=== PATIENT | female | born 1955 | race Caucasian/White ===

== ENCOUNTER 2017-03-06 21:46 | Inpatient (IN) | payer OTHER ==
--- NOTE | ~2017-03-06 | HP ---
Unit #: [id number] #: [id number] Patient: HALEIGH PETERS [id number] [address] [address] [id number] I MR#: [id number] NAME: HALEIGH PETERS ROOM: 575 Age: 61 Sex: F Admission Date: 03/06/2017 : 1955 Attending Physician: Kaila Pike M.D. Primary Care Physician: No Primary Care Physician HISTORY AND PHYSICAL INDICATION Atrial fibrillation and palpitations. HISTORY OF PRESENT ILLNESS 61-year-old female with a past medical history of smoking, hypertension, hyperlipidemia who presents to the ER with three hour history of sudden onset of palpitations and chest discomfort. The patient states once this has started it has not stopped and is making her feel uncomfortable. She also mentioned some associated shortness of breath. She mentions to a sudden onset, no specific exciting factor. She denies stroke in past. She denies any bleeding history in past. She denies any prior cardiac workup. She takes Lipitor 20 mg. We follow blood pressure and amlodipine/benazepril combination for her hypertension. She states being (1) to all of her medications. 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 She denies orthopnea, PND, pedal edema and syncope. In the ER she was found to be in atrial fibrillation with a ventricular rate around 160 BPM. ECG demonstrates AFib with nonspecific ST segment changes. PAST MEDICAL HISTORY 1. Hypertension. 2. Hyperlipidemia. 3. Smoking. 4. Osteomyelitis of the right first great toe four years ago. PAST SURGICAL HISTORY Denies any history of cardiac surgeries, appendectomy or cholecystectomy. OUTPATIENT MEDICATIONS 1. Amlodipine/benazepril combination 5/40 mg p.o. once daily. 2. Lipitor 20 mg p.o. daily. ALLERGIES No known drug allergies. REVIEW OF SYSTEMS All 14 point review of systems are negative except as per HPI. Unit #: [id number] #: [id number] Patient: HALEIGH PETERS SOCIAL HISTORY She is . Currently works in a warehouse. Continues to smoke. FAMILY HISTORY Premature coronary artery disease with father having a heart attack at age around 50. PHYSICAL EXAMINATION VITAL SIGNS: Patient's blood pressure currently is 108/68 with a ventricular rate of 158 BPM, respiratory rate around 18, afebrile. GENERAL: In mild distress. NECK: No thyromegaly noted. No JVD. HEENT: PERRLA. CHEST: No vesicular breath sounds heard bilaterally. HEART: S1 and S2 is heard, irregular, tachycardic. No murmurs appreciated. ABDOMEN: Soft and nontender. Bowel sounds are present. SKIN: Intact. No ulcers. PSYCH: Mood and affect normal. NEUROLOGIC: Speech and gait normal. MUSCULOSKELETAL: No scoliosis noted. EXTREMITIES: Distal pulses present. Warm. DIAGNOSTIC STUDIES LABORATORY STUDIES: Labs currently pending. ASSESSMENT AND PLAN 1. Atrial fibrillation. 2. Hypertension. 3. Hyperlipidemia. PLAN Patient currently in AFib with RVR. Given metoprolol at 5 mg IV x1. Patient is already in ER. Patient is already on amiodarone bolus. Would start patient on Cardizem 5 mg an hour drip and also with p.o. Cardizem 30 mg p.o. q.6. I have noted, myself, that given IV metoprolol currently in the ER, the patient's heart rate is being controlled currently with a heart rate less than 120 BPM. Would continue with above mentioned plan. Plan anticoagulation as patient's CHADS-VASc score is at least 2. Will start Eliquis 5 mg p.o. b.i.d. If patient continues to remain in atrial fibrillation, will consider offering her cardioversion in the morning for maintenance of rhythm. Given extensive history of premature coronary artery disease and ST segment changes with RVR and extensive smoking, we would go ahead and proceed with a Lexiscan stress test also in the morning. Hold patient's benazepril amlodipine combination at present. Will use patient's blood pressure room for up titration of AV rubina blocking agents. Continue a statin. Further management plan as inpatient. Dictated by Unit #: [id number] #: [id number] Patient: HALEIGH PETERS M.D. PR/ts TD: 03/07/2017 05:07 JOB #: [id number] HISTORY AND PHYSICAL Page 1 of 1 X KAILA PIKE MD X HISTORY AND PHYSICAL
--- NOTE | ~2017-03-06 | DS ---
Unit #: [id number] #: [id number] Patient: HALEIGH PETERS [id number] [facility]. [place], [place] [address] [id number] I MR#: [id number] NAME: HALEIGH PETERS ROOM: 575 Age: 61 Sex: F Admission Date: 03/06/2017 : 1955 Discharge Date: 03/08/2017 Attending Physician: Maurilio Pike M.D. Primary Care Physician: No Primary Care Physician DISCHARGE SUMMARY HISTORY This 61-year-old white female patient has history of hypertension, hyperlipidemia and history of smoking. She was brought to the ER with palpitations, which started about 3 hours before. She also complained of mild chest pains. She was found to be in atrial fibrillation with rapid ventricular response. She was eventually treated with a Cardizem drip. The patient denies any dizziness or syncope. No history of rheumatic fever or congenital heart disease. FAMILY HISTORY Her father had a heart attack in his 50s. MEDICATIONS Her medications included Lipitor and amlodipine/benazepril. ALLERGIES No drug allergies. PHYSICAL EXAMINATION VITAL SIGNS: At the time of admission, blood pressure was 108/68, heart rate 158 per minute, irregular, respiratory rate 18 per minute. NECK: No JVD. CARDIOVASCULAR: Irregular rate and rhythm. PMI is nondisplaced on auscultation. S1, S2 normal. No S3, S4, murmurs, rubs or clicks noted. VASCULAR: Carotid pulses are brisk without bruit. Abdominal aorta without bruit. Femoral and pedal pulses are normal with normal pulse amplitude. LUNGS: Clear. INITIAL IMPRESSION 1. Atrial fibrillation with rapid ventricular response 2. Hypertension. 3. Hyperlipidemia. 4. Positive family history of heart disease. 5. History of tobacco abuse. HOSPITAL COURSE Patient converted to normal sinus rhythm. Currently she is on Cardizem 30 mg q.6 hours and Eliquis 5 mg twice a day. We will switch to Cardizem CD 240 mg daily. She will continue Eliquis 5 mg b.i.d. She had an echocardiogram, which will be reviewed. We [facility] as [facility] and follow up with Dr. Harris in 6 weeks. Unit #: [id number] #: [id number] Patient: HALEIGH PETERS DISCHARGE DIET Healthy heart diet. ACTIVITIES As tolerated. FOLLOW-UP Follow up with Dr. Harris in 6 weeks. NOTE: Discharge process took more than 30 minutes. Dictated by... Milagros Iyer/gato TD: 03/09/2017 12:19 JOB #: [id number] DISCHARGE SUMMARY Page 1 of 1 X Lana Lopez MD X DISCHARGE SUMMARY
--- NOTE | ~2017-03-06 | EKG ---
PATIENT: HALEIGH PETERS UNIT #: [id number] Ventricular Rate: 165 BPM Atrial Rate: 150 BPM QRS Duration: 82 ms Q-T Interval: 286 ms QTC Calculation(Bezet): 473 ms Calculated R [place]: 32 degrees Calculated T [place]: -146 degrees Diagnosis Line: Atrial fibrillation with rapid ventricular Diagnosis Line: response Diagnosis Line: Marked ST abnormality, possible inferior Diagnosis Line: subendocardial injury Diagnosis Line: Abnormal ECG Diagnosis Line: When compared with ECG of 22-AUG-2013 15:13, Diagnosis Line: Atrial fibrillation has replaced Sinus rhythm Diagnosis Line: Vent. rate has increased BY 103 BPM Diagnosis Line: ST now depressed in Inferior leads Diagnosis Line: ST now depressed in Anterolateral leads Diagnosis Line: T wave inversion now evident in Inferior leads Diagnosis Line: Confirmed by MARY BECK MD ([id number]) on Diagnosis Line: 03/07/2017 3:20:01 PM INTERPRETING MD: KIRAN WHITLEY
--- NOTE | ~2017-03-06 | CR72 ---
[facility] A Service of [facility] RADIOLOGY TEXT RESULTS PATIENT: HALEIGH PETERS LOCATION: [facility] [id number] : 55 UNIT #: [id number] AGE: [address]: KAILA BAEZA MD SEX: F ORDER DR: [id number] [facility] [address] [place], [place] [address] [id number] MR#: [id number] Acc #: [id number] NAME: HALEIGH PETERS : 1955 SEX: F STUDY DATE/TIME: 03/06/2017 22:34 UNIT: [facility] ROOM: [facility] STUDY DESCRIPTION: CR Chest Single View Portable Attending Physician: Kaila Baeza M.D. Ordering Physician: Kathy Last M.D. Primary Care Physician: Primary Care Physician No MEDICAL IMAGING REPORT This report is preliminary unless electronic signature is present EXAM Portable chest INDICATION Cough. Arrhythmia today. COMPARISON 08/16/2016. FINDINGS Heart size within normal limits. Lungs clear. No pleural fluid. No pneumothorax. IMPRESSION No active process. Dictated by... Roderick Echevarria M.D. THIS IS AN ELECTRONICALLY VERIFIED REPORT Roderick Echevarria M.D. at 03/07/2017 9:55 PM GABRIEL/esequiel TD: 03/07/2017 08:18 JOB #: [id number] MEDICAL IMAGING REPORT Page 1 of 1 COPY
[~2017-03-06 21:46] MED LIST: ASPIRINEC PO; ATIVAN0.5 MG PO; BYSTOLIC10 MG PO; CEPHALEXIN500 M1; LOPRESSOR PO; LOTREL 5-40 MG1 EACH PO; SIMVASTATIN40 MG PO; TOPROL XL100 MG
[2017-03-06 22:34] LABS: POC - CKMB 1.6 ng/mL (0.0-7.9); POC - TROPONIN <0.05 ng/mL (<=0.05)
[2017-03-06] MEDS ORDERED: CELEXA20 MG PO (22:51)
[2017-03-06] MEDS ORDERED: LIPITOR20 MG PO (22:51)
[2017-03-06 22:52] LABS: PARTIAL THROMBOPLASTIN TIME 28.7 SECONDS (23.5-31.3)
[2017-03-06 22:59] LABS: BASOPHIL# 0.1 X10e3 (0-0.3); BASOPHIL% 0.5 % (0-2.5); DIFF IND YES; EOSINOPHIL# 0.1 X10e3 (0-0.7); EOSINOPHIL% 0.4 % (0.0-7.0); HEMATOCRIT 46.8 % (35.0-45.0); HEMOGLOBIN 15.1 gm/dL (12.0-16.0); LYMPHOCYTE# 1.6 X10e3 (1.0-3.5); LYMPHOCYTE% 11.6 % (17.0-45.0); MEAN CELL VOLUME 93.1 FL (83-96); MEAN CORPUSCULAR HGB CONC 32.2 g/dL (30-36); MEAN PLATELET VOLUME 13.1 FL (6.5-11.5); MONOCYTE# 1.2 X10e3 (0-1.0); MONOCYTE% 8.4 % (3.0-12.0); NEUTROPHIL# 10.9 X10e3 (1.5-7.1); NEUTROPHIL% 79.1 % (40-75); PLATELET COUNT 96 X10e3 (140-420); RED BLOOD COUNT 5.03 X10e (3.90-5.30); RED CELL DISTRIBUTION WIDTH 14.3 % (11.0-15.5); WHITE BLOOD COUNT 13.8 X10e3 (4.0-10.5)
[2017-03-06 23:15] LABS: ALBUMIN SERUM 4.4 g/dL (3.5-5.0); BILIRUBIN, DIRECT 0.1 mg/dL (0.0-0.2); BILIRUBIN,INDIRECT 1.3 mg/dL (0.0-0.9); BILIRUBIN,TOTAL 1.4 mg/dL (0.2-2.0); BUN/CREATININE RATIO 15.55; CREATININE SERUM 0.9 mg/dL (0.6-1.4); GLOM FILT RATE Estimated 69.1 mL/min (>60); MAGNESIUM 1.9 mg/dL (1.6-3.0); POTASSIUM 3.6 mmol/L (3.5-5.1); PROTEIN TOTAL SERUM 7.8 g/dL (6.0-8.3)
[2017-03-06 23:22] LABS: PLATELET ESTIMATE DECREASED (NORMAL)
[2017-03-06 23:23] LABS: RBC NORMAL YES
[2017-03-07 00:02] LABS: POC - CKMB 1.1 ng/mL (0.0-7.9); POC - TROPONIN <0.05 ng/mL (<=0.05)
[2017-03-07 08:10] LABS: BASOPHIL# 0.1 X10e3 (0-0.3); BASOPHIL% 0.9 % (0-2.5); EOSINOPHIL% 0.3 % (0.0-7.0); HEMATOCRIT 42.3 % (35.0-45.0); HEMOGLOBIN 13.8 gm/dL (12.0-16.0); LYMPHOCYTE# 1.9 X10e3 (1.0-3.5); LYMPHOCYTE% 19.5 % (17.0-45.0); MEAN CELL VOLUME 92.6 FL (83-96); MEAN CORPUSCULAR HEMOGLOBIN 30.2 PG (28-34); MEAN CORPUSCULAR HGB CONC 32.6 g/dL (30-36); MONOCYTE# 1.1 X10e3 (0-1.0); MONOCYTE% 10.7 % (3.0-12.0); NEUTROPHIL# 6.8 X10e3 (1.5-7.1); NEUTROPHIL% 68.6 % (40-75); PLATELET COUNT 83 X10e3 (140-420); RED BLOOD COUNT 4.57 X10e (3.90-5.30); RED CELL DISTRIBUTION WIDTH 13.9 % (11.0-15.5)
[2017-03-07 08:11] LABS: DIFF IND NO
[2017-03-07 08:29] LABS: BUN/CREATININE RATIO 14.28; CALCIUM SERUM 8.5 mg/dL (8.4-10.2); CREATININE SERUM 0.7 mg/dL (0.6-1.4); GLOM FILT RATE Estimated 93.5 mL/min (>60); MAGNESIUM 2.1 mg/dL (1.6-3.0); POTASSIUM 3.9 mmol/L (3.5-5.1)
[2017-03-08] MEDS ORDERED: COUMADIN5 MG PO (13:27)
[2017-03-08] MEDS ORDERED: CARDIZEM CD240 M1 PO (13:29)
== END 2017-03-08 14:20 | disposition home or self-care (01) | DRG 310 ==
LOC: CED 21:46 → C5C 23:48 → CEDOF 23:48 → C5C 03-07 00:07
PROVIDERS: Emergency Medicine; Internal Medicine Interventional Cardiology
PROC: B246YZZ Ultrasonography of Right and Left Heart using Other Contrast (ICD-10-PCS; principal; 2017-03-07)
DX: I48.91 Unspecified atrial fibrillation (principal); I10 Essential (primary) hypertension; E78.5 Hyperlipidemia, unspecified
CPT/HCPCS: 36415; 71010; 80048; 80076; 82553; 83735; 83880; 84443; 84484; 85025; 85610; 85730; 93005; 93306; 96361; 96374; 96375; 99285; J0282; J3490

== ENCOUNTER → 2017-03-13 | Outpatient (CLI) | payer OTHER ==
[~2017-03-13] MED LIST changes: +CARDIZEM CD240 M1 PO; +CELEXA20 MG PO; +COUMADIN5 MG PO; +LIPITOR20 MG PO
[2017-03-13 16:28] LABS: INR 1.6
== END | disposition home or self-care (01) ==
LOC: SLAB 15:49
PROVIDERS: Internal Medicine Cardiovascular Disease
DX: Z51.81 Encounter for therapeutic drug level monitoring (principal)
CPT/HCPCS: 36415; 85610

== ENCOUNTER → 2017-04-06 | Outpatient (CLI) | payer OTHER ==
[2017-04-06 16:43] LABS: INR 2.6; PROTHROMBIN TIME (PATIENT) 30.2 SECONDS (9.5-12.4)
== END | disposition home or self-care (01) ==
LOC: SLAB 16:07
PROVIDERS: Internal Medicine Cardiovascular Disease
DX: I48.91 Unspecified atrial fibrillation (principal)
CPT/HCPCS: 36415; 85610